=== PATIENT | female | born 1955 | race Caucasian/White ===

== ENCOUNTER 2021-05-14 11:30 | Emergency (ER) | payer MEDICARE, OTHER ==
[~2021-05-14] VITALS: Ht 154.9 cm; Wt 83.9 kg
--- NOTE | 2021-05-14 11:55 | NUR ---
Pt triaged and placed in waiting room.
--- NOTE | 2021-05-14 12:00 | NUR ---
Pt bib caregiver for medical clearance to go to psych facility. diet supervisor reports she called [facility] and was instructed to come to ER for med clearance first. No c/o at this time. Per long term care pharmacist, pt is unable to care for herself at home, she is not eating/drinking, no taking care of herself. V/S stable, no acute distress noted.
--- NOTE | 2021-05-14 12:05 | NUR ---
ER Dr. Patel at bedside examining patient.
[2021-05-14 12:24] VITALS: BP_SYST 143
--- NOTE | 2021-05-14 12:29 | NUR ---
Lab at bedside for blood draw.
[2021-05-14 12:39] LABS: BASOPHILS # (AUTO) 0.1 K/uL (0.0-0.2); BASOPHILS % (AUTO) 0.6 % (0.0-2.0); EOSINOPHILS # (AUTO) 0.2 K/uL (0.0-0.4); EOSINOPHILS % (AUTO) 2.2 % (0.0-4.0); HEMATOCRIT 42.9 % (36-48); HEMOGLOBIN 14.9 g/dL (12.0-16.0); LYMPHOCYTES # (AUTO) 1.9 K/uL (1.0-5.5); MEAN CORPUSCULAR HEMOGLOBIN 32 pg (27-31); MEAN CORPUSCULAR HGB CONC 35 % (32-36); MEAN CORPUSCULAR VOLUME 92 fL (79.0-98.0); MONOCYTES # (AUTO) 0.6 K/uL (0.0-1.0); MONOCYTES % (AUTO) 7.3 % (1.7-9.3); NEUTROPHILS # (AUTO) 5.4 K/uL (1.8-7.7); NEUTROPHILS % (AUTO) 66.9 % (40.0-70.0); PLATELET COUNT (AUTO) 290 K/uL (130-430); RED BLOOD CELL COUNT(AUTO) 4.69 MIL/uL (4.2-6.2); RED CELL DISTRIBUTION WIDTH 13.4 % (9.0-15.0); WHITE BLOOD COUNT (AUTO) 8.1 K/uL (4.8-10.8)
[2021-05-14 12:59] LABS: ALANINE AMINOTRANSFERASE 35 U/L (12-78); ALBUMIN 3.7 g/dL (3.4-4.8); ASPARTATE AMINOTRANSFERASE 15 U/L (10-37); CALCIUM 9.5 mg/dL (8.4-11.0); CHLORIDE 106 mmol/L (98-107); CREATININE 0.83 mg/dL (0.55-1.30); GLUCOSE 148 mg/dL (70-99); POTASSIUM 3.9 mmol/L (3.5-5.1); SODIUM SERUM 138 mmol/L (136-145); TOTAL BILIRUBIN 0.5 mg/dL (0.0-1.0); UREA NITROGEN, BLOOD 18 mg/dL (8-21)
[2021-05-14 13:12] LABS: ACETAMINOPHEN < 1 ug/mL (1-30); ALCOHOL, BLOOD < 3 mg/dL (<10); ANION GAP 7 (5-15); GFR AFRICAN AMERICAN 88 mL/min (>90)
--- NOTE | 2021-05-14 15:20 | NUR ---
Patient given written and verbal discharge instructions and verbalizes understanding. ER MD discussed with patient the results and treatment provided. Patient in stable condition. ID arm band removed. No prescriptions given. Patient educated on pain management and to follow up with PMD. Pain Scale 0. Opportunity for questions provided and answered. Medication side effect fact sheet provided.
[2021-05-14 15:21] VITALS: BP_SYST 143
== END 2021-05-14 15:21 | disposition home or self-care (01) ==
LOC: SED 11:30
DX: F22 Delusional disorders (principal); Z20.822 Contact with and (suspected) exposure to COVID-19
CPT/HCPCS: 36415; 80053; 83036; 85025; 87426; 99283; G0480; G0481; G0482